=== PATIENT | female | born 1960 | race Caucasian/White ===

== ENCOUNTER 2020-04-27 14:43 | Emergency (ER) | payer BC ==
--- NOTE | 2020-04-27 14:55 | EDM.PDOC ---
ED HPI GENERAL MEDICAL PROBLEM - General Chief Complaint: Lower Extremity Injury/Pain Stated Complaint: knee pain Time Seen by Provider: 04/27/20 14:49 Source of Information: Reports: Patient History Limitations: Reports: No Limitations - History of Present Illness INITIAL COMMENTS - FREE TEXT/NARRATIVE: This patient is a 60 year old female that presents to the ER. Patient reports that she was outside carrying a tote, when she twisted her right ankle and fell down on her left knee. patient reports that her ankle does not hurt, just her left knee. Patient reports it does not hurt that bad, she is concerned about the hardware from the knee replacement she had done. Onset: Today Onset Date: 04/27/20 Onset Time: 14:00 Location: Reports: Lower Extremity, Left Quality: Reports: Ache Severity: Mild Improves with: Reports: None Worsens with: Reports: None Treatments MEDICAL OFFICE TECHNOLOGIST: Reports: Cold Therapy Left Knee Pain Score (Numeric/FACES): 1 - Related Data Allergies Allergy/AdvReac Type Severity Reaction Status Date / Time corn Allergy Joint Pain Verified 04/27/20 14:46 nut - unspecified Allergy Anaphylactic Verified 04/27/20 14:46 Shock wheat Allergy Other Verified 04/27/20 14:46 Home Meds: Home Meds ALPRAZolam [Alprazolam] 0.25 mg PO DAILY 01/10/18 [History] Cetirizine [ZyrTEC] 10 mg PO DAILY 01/10/18 [History] Citalopram [Citalopram HBr] 20 mg PO DAILY 01/10/18 [History] Past Medical History - Past Health History Medical/Surgical History: Denies 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/Surgical 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: - Past Surgical History Female Surgical History: Reports: Section Musculoskeletal Surgical History: Reports: Knee Replacement Social & Family History - Family History Family Medical History: Noncontributory - Tobacco Use Smoking Status *Q: Never Smoker - Caffeine Use Caffeine Use: Reports: Soda - Recreational Drug Use Recreational Drug Use: No - Living Situation & Occupation Living situation: Reports: with Family Occupation: Employed Review of Systems - Review of Systems Review Of Systems: See Below Constitutional: Reports: No Symptoms Eyes: Reports: No Symptoms Ears: Reports: No Symptoms Nose: Reports: No Symptoms Mouth/Throat: Reports: No Symptoms Respiratory: Reports: No Symptoms Cardiovascular: Reports: No Symptoms GI/Abdominal: Reports: No Symptoms Genitourinary: Reports: No Symptoms Musculoskeletal: Reports: Joint Pain (left knee pain, clicking) Skin: Reports: No Symptoms Neurological: Reports: No Symptoms Psychiatric: Reports: No Symptoms ED EXAM, GENERAL - Physical Exam Exam: See Below Exam Limited By: No Limitations General Appearance: Alert, WD/WN, No Apparent Distress Respiratory/Chest: No Respiratory Distress, Lungs Clear, Normal Breath Sounds, No Accessory Muscle Use Cardiovascular: Normal Peripheral Pulses, Regular Rate, Rhythm, No Edema, No Gallop, No JVD, No Murmur, No Rub Peripheral Pulses: 2+: Femoral (R), Popliteal (L), Posterior Tibial (L), Posterior Tibial (R), Dorsalis Pedis (L), Dorsalis Pedis (R) Extremities: Normal Inspection, Normal Range of Motion, No Pedal Edema, Normal Capillary Refill, Other (Pain, mild tenderness left lateral knee with extension. No swelling. Pulses +2, cap refill < 2 sec. Sensory/motor function intact. ) Neurological: Alert, Oriented Psychiatric: Normal Affect, Normal Mood Skin Exam: Warm, Dry, Intact, Normal Color, No Rash Course - Vital Signs Last Recorded V/S: Last Vital Signs Temp 96.5 F L 04/27/20 14:43 Pulse 68 04/27/20 14:43 Resp 16 04/27/20 14:43 BP 150/78 H 04/27/20 14:43 Pulse Ox 98 04/27/20 14:43 - Orders/Labs/Meds Orders: Active Orders 24 hr Category Date Time Status Knee 3V Lt [CR] Stat Exams 04/27/20 14:52 Taken - Radiology Interpretation Free Text/Narrative:: Left Knee: No fracture seen. Knee replacement hardware intact. No dislocation. Departure - Departure Time of Disposition: 15:38 Disposition: Home, Self-Care 01 Condition: Good Clinical Impression: Knee effusion, right - Discharge Information *PRESCRIPTION DRUG MONITORING PROGRAM REVIEWED*: Not Applicable *COPY OF PRESCRIPTION DRUG MONITORING REPORT IN PATIENT KIMBERLI: Not Applicable Instructions: Knee Effusion, [id number] Forms: ED Department Discharge Additional Instructions: Followup with your orthopedic surgeon as needed, if pain continues, bruising, swelling, or other knee concerns Followup with primary care provider Return to the ER for worsening of condition or any emergent concerns Rest Ice Elevate Andre Wrap as needed Weight bearing as tolerated Tylenol or Motrin for pain as needed Sepsis Event Note - Evaluation Sepsis Screening Result: No Definite Risk - Focused Exam Vital Signs: Vital Signs Temp Pulse Resp BP Pulse Ox 04/27/20 14:43 96.5 F L 68 16 150/78 H 98 Date Exam was Performed: 04/27/20 Time Exam was Performed: 15:39 - My Orders Last 24 Hours: My Active Orders 04/27/20 14:52 Knee 3V Lt [CR] Stat - Assessment/Plan Last 24 Hours: My Active Orders 04/27/20 14:52 Knee 3V Lt [CR] Stat Plan: PLEASE SEE RN NOTE FOR PFSH.
== END 2020-04-27 16:00 | disposition home or self-care (01) ==
LOC: CC.ED 14:43
DX: M25.462 Effusion, left knee (principal); Z91.018 Allergy to other foods; Z79.899 Other long term (current) drug therapy
CPT/HCPCS: 73562-LT; 99283-25